=== PATIENT | female | born 1955 | race Caucasian/White ===

== ENCOUNTER 2019-11-03 14:09 | Inpatient (IN) ==
[~2019-11-03 14:09] MED LIST: Acetaminophen IV 1,000 MG/100 ML INFUS..BTL IVPB ONE
[2019-11-03] MEDS ORDERED: Famotidine 20 MG/2 ML VIAL IVP ONE (14:33)
[2019-11-03] MEDS ORDERED: Pregabalin 75 MG CAPSULE PO ONE (14:34)
[2019-11-03] MEDS ORDERED: CeFAZolin Syr 2,000MG/20 ML 2,000 MG/20 ML SYRINGE IVPB ONE (14:36)
[2019-11-03] MEDS ORDERED: Ringers Solution, Lactated 1,000 ML IVC SCH ×2 (14:45→19:18)
[2019-11-03] MEDS ORDERED: Naloxone 0.4 MG/ML INJ IVP PRN ×2 (14:56→19:18)
[2019-11-03] MEDS ORDERED: *HR* FentaNYL (PF) 100 MCG/2 ML VIAL IVP PRN (14:56)
[2019-11-03] MEDS ORDERED: Albuterol 2.5 MG/3 ML NEBULIZER IH PRN (14:56)
[2019-11-03] MEDS ORDERED: Ondansetron 4 MG/2 ML VIAL IVP PRN ×2 (14:56→19:18)
[2019-11-03] MEDS ORDERED: *HR* Metoprolol 5 MG/5 ML VIAL IVP PRN (14:56)
[2019-11-03] MEDS ORDERED: flumazeniL 0.5 MG/5 ML VIAL IVP PRN (14:56)
[2019-11-03] MEDS ORDERED: *HR* OxyCODONE Immed Rel 5 MG TABLET PO PRN ×2 (14:56→19:18)
[2019-11-03] MEDS ORDERED: *HR* FentaNYL (PF) 100 MCG/2 ML VIAL ONE (16:41)
[2019-11-03] MEDS ORDERED: Lidocaine -MPF 2% 2 ML VIAL ONE (16:41)
[2019-11-03] MEDS ORDERED: *HR* Midazolam HCl 2 MG/2 ML VIAL ONE (16:41)
[2019-11-03] MEDS ORDERED: Ropivacaine/PF 0.5% 30 ML VIAL ONE (17:01)
[2019-11-03] MEDS ORDERED: Ethanol\\Acetic Acid\\Na Ace\\Ben 1,000 ML IRRIG.SOLN IR ONE (17:08)
[2019-11-03] MEDS ORDERED: Vancomycin 1,000 MG VIAL ONE (17:08)
[2019-11-03] MEDS ORDERED: *HR* PHENYLEPHRINE 1,000 MCG/10 ML SYRINGE IVP ONE (17:30)
[2019-11-03] MEDS ORDERED: Dexamethasone 4 MG/ML VIAL ONE (17:37)
[2019-11-03] MEDS ORDERED: Ondansetron 4 MG/2 ML VIAL ONE (17:37)
[2019-11-03] MEDS: *HR* HYDROmorphone PF 0.5 MG/0.5 ML SYRINGE IVP PRN ×2 (18:13→18:31)
[2019-11-03 18:37] LABS: Hematocrit 43.5 % (35.3-44.9); Hemoglobin 13.9 g/dL (11.5-15.4)
[2019-11-03] MEDS ORDERED: *HR* Dextrose 50 % in Water (Vial) 50 ML VIAL IVP PRN (19:18)
[2019-11-03] MEDS ORDERED: Sennosides 8.6 MG TABLET PO PRN (19:18)
[2019-11-03] MEDS ORDERED: Dextrose Gel 15 GM/37.5 ML TUBE PO PRN ×2 (19:18)
[2019-11-03] MEDS ORDERED: D5% in Water 1,000 ML IVC PRN (19:18)
[2019-11-03] MEDS ORDERED: Ibuprofen 800 MG TABLET PO PRN (19:18)
[2019-11-03] MEDS ORDERED: *HR* OxyCODONE/APAP 5/325 TABLET PO PRN (19:18)
[2019-11-03] MEDS ORDERED: Fluticasone Propionate Nasal 50 MCG/SPRAY BOTTLE NS PRN (19:18)
[2019-11-03] MEDS ORDERED: ALPRAZolam 1 MG TABLET PO PRN (19:18)
[2019-11-03] MEDS ORDERED: MOM Conc 10 ML UD.LIQ PO PRN (19:18)
[2019-11-03] MEDS ORDERED: Loratadine 10 MG TABLET PO PRN (19:18)
[2019-11-03] MEDS: Insulin LISPRO 300 UNITS/3 ML VIAL SQ SCH (19:20)
[2019-11-03] MEDS ORDERED: Insulin LISPRO 300 UNITS/3 ML VIAL SQ SCH (21:00)
[2019-11-03] MEDS: Gabapentin 400 MG CAPSULE PO SCH (21:49)
[2019-11-03] MEDS: Cholecalciferol (D-3) 1,000 UNIT (25MCG) TABLET PO SCH (21:52)
[2019-11-04] MEDS: CeFAZolin 2 GM/120 ML BAG IVPB SCH ×3 (00:55→08:53)
[2019-11-04] MEDS: Gabapentin 400 MG CAPSULE PO SCH ×3 (01:07→14:37)
[2019-11-04 06:47] VITALS: BP 101/68
[2019-11-04 06:56] LABS: BUN/Creatinine Ratio 20 (6-26); Blood Urea Nitrogen 15 mg/dL (8-23); Calcium 8.6 mg/dL (8.6-10.3); Carbon Dioxide 26 mEq/L (23-29); Chloride 102 mEq/L (98-107); Glucose 95 mg/dL (70-105); Osmolality,Calculated 281 (280-300); Potassium 3.8 mEq/L (3.5-5.1); Sodium 135 mEq/L (136-145); eGFR For African Americans > 60 (> 60); eGFR For Non-African Americans > 60 (> 60)
[2019-11-04 07:06] LABS: Hematocrit 38.5 % (35.3-44.9)
[2019-11-04 07:16] LABS: Hemoglobin 11.9 g/dL (11.5-15.4)
[2019-11-04] MEDS: Insulin LISPRO 300 UNITS/3 ML VIAL SQ SCH ×2 (08:05→14:35)
[2019-11-04] MEDS: Cholecalciferol (D-3) 1,000 UNIT (25MCG) TABLET PO SCH (08:11)
[2019-11-04] MEDS ORDERED: CefTRIAXone 1,000 MG VIAL IM ONE (08:54)
[2019-11-04] MEDS ORDERED: Aspirin Enteric Coated 81 MG Tablet PO SCH ×2 (09:00)
[2019-11-04] MEDS ORDERED: Lidocaine -MPF 1% 5 ML AMPUL ID ONE (11:15)
== END 2019-11-04 15:02 | disposition home or self-care (01) | DRG 322 ==
LOC: SAMDAY 14:09 → 3NENU 19:10
PROVIDERS: ADMIT Orthopaedic Surgery; ATTEND Orthopaedic Surgery